=== PATIENT | male | born 2000 | race Caucasian/White ===

== ENCOUNTER 2024-11-28 10:43 | Outpatient (CLI) | payer BC, SELFPAY | END 2024-11-28 10:44 | disposition home or self-care (01) | LOC: NFLDREF 12-04 16:22 | PROVIDERS: PCP Family Medicine; Referring Provider Family Medicine; Visit Provider Family Medicine | DX: Z00.00 Encounter for general adult medical examination without abnormal findings (principal); Z13.6 Encounter for screening for cardiovascular disorders | CPT/HCPCS: 80053; 80061 ==

== ENCOUNTER 2024-11-30 13:38 | Outpatient (CLI) | payer BC, SELFPAY ==
--- NOTE | 2024-11-30 14:00 | CRLHL7_ITS ---
For Patients: As a result of the Century Cures Act, medical imaging exams and procedure reports are released immediately into your electronic medical record. You may view this report before your referring provider. If you have questions, please contact your health care provider. INDICATION: Bump/lump left testicle COMPARISON: none TECHNIQUE: Oneil scale imaging was performed of the scrotum. In addition color Doppler and spectral Doppler analysis was performed of the testes. FINDINGS: The testes demonstrate normal arterial and venous blood flow on color Doppler and spectral Doppler analysis. Nonshadowing echogenic structure within the right testicle measures 3 x 3 x 4 millimeters. Right testicular cyst measures 2 x 2 x 2 millimeters. The right testis measures 3.8 x 2.0 x 2.9 cm in size and the left testis measures 4.1 x 2.1 x 2.7 cm. The epididymis appears normal bilaterally. There is no evidence of a hydrocele or varicocele. IMPRESSION: Hyperechoic nonshadowing structure in the right testicle measures 4 millimeters, likely benign. Incidental right testicular cyst. Urology referral recommended. Dictated by Jeff Merida MD @ 11/30/2024 3:27:42 PM (Electronically Signed)
== END 2024-11-30 13:39 | disposition home or self-care (01) ==
LOC: US 13:39
PROVIDERS: PCP Family Medicine; Visit Provider Family Medicine
DX: N50.89 Other specified disorders of the male genital organs (principal); N44.2 Benign cyst of testis
CPT/HCPCS: 76870; 93976